=== PATIENT | female | born 1980 | race Caucasian/White ===

== ENCOUNTER 2017-07-08 23:02 | Emergency (ER) | payer SELFPAY ==
[~2017-07-08] VITALS: Ht 162.6 cm; Wt 75.0 kg
[2017-07-08 23:06] VITALS: Ht 162.6 cm; Wt 75.0 kg
[2017-07-09] MEDS ORDERED: ONDANSETRON 4 MG INJ IV STA (02:05)
[2017-07-09] MEDS ORDERED: SOD CHLORIDE 0.9% 1,000 ML IV STA (02:05)
[2017-07-09] MEDS ORDERED: FAMOTIDINE 20 MG TAB PO STA (02:05)
[2017-07-09 03:05] LABS: ADD UMIC YES; UR ASCORBIC ACID NEGATIVE (NEGATIVE); UR BACTERIA FEW /HPF (NONE SEEN); UR BILIRUBIN (Dip) NEGATIVE (NEGATIVE); UR BLOOD (Dip) 2+ mg/dL (NEGATIVE); UR CLARITY CLEAR (CLEAR); UR COLOR YELLOW (YELLOW); UR GLUCOSE (Dip) NEGATIVE (NEGATIVE); UR KETONES (Dip) NEGATIVE (NEGATIVE); UR LEUKOCYTE ESTERASE (Dip) 3+ Leu/ul (NEGATIVE); UR NITRITE (Dip) NEGATIVE (NEGATIVE); UR RBC 2 /HPF (0-5); UR SPECIFIC GRAVITY (Dip) 1.012 (1.003-1.030); UR TOTAL PROTEIN (Dip) NEGATIVE (NEGATIVE); UR UROBILINOGEN (Dip) NEGATIVE (NEGATIVE)
--- NOTE | 2017-07-09 03:23 | RADRPT ---
PROCEDURE: CT ABDOMEN/PELVIS WITHOUT CONTRAST CLINICAL INDICATION: 37-year-old female with abdominal pain. TECHNIQUE: The study was performed utilizing a GE [employer] VCT 64-slice CT scanner. Direct axia l sections were obtained through the abdomen and pelvis without the use of intravenous contrast mate rial. Sagittal and coronal reformations were obtained. One or more of the following dose reduction t echniques were utilized: automated exposure control, adjustment of the mA and/or kV according to pat ient's size or use of iterative reconstruction technique. The images were reviewed on a PACS workst [employer]. CTD/vol = 13.2 mGy; Total Exam DLP = 752.6 mGy-cm. COMPARISON: None. FINDINGS: There is minimal bibasilar subsegmental atelectasis. There is no evidence for significant pleural e ffusion. The liver has a normal size and contour. There is a lobulated cystic focus within the inf erior aspect of the right lobe of the liver on axial image 3-63 measuring approximately 1.7 x 1.4 x 1.9 cm. No intrahepatic nor extrahepatic biliary ductal dilatation is seen. Surgical clips are pres ent within the gallbladder fossa from prior cholecystectomy. The pancreas is without areas of abnor mal attenuation. The spleen is identified and has a normal size without abnormal density. The adren al glands are unremarkable. The kidneys are without abnormal density. No hydroureteronephrosis nor n ephroureterolithiasis is evident. The urinary bladder contains urine. There is mild retained stool w ithin the ascending and transverse colon without obstruction. The appendix is visualized and is wit hout abnormal thickening or surrounding inflammatory reaction. The uterus is anteflexed. There is trace pelvic free fluid. The aortoiliac vessels are without aneurysmal dilatation. The osseous stru ctures are intact. IMPRESSION: 1. Status post cholecystectomy. 2. Lobulated right hepatic cyst. 3. Mild retained stool without obstruction. 4. No CT evidence for appendicitis. 5. Trace pelvic free fluid. .Luis Eduardo Mendez MD, MD Date Time Electronically viewed and signed by .Luis Eduardo Mendez MD, MD on 07/09/2017 03:23 .M/
[2017-07-09 03:39] LABS: BASOPHILS % 0.3 % (0.0-2.0); EOSINOPHILS # 0.4 10^3/ul (0.0-0.5); EOSINOPHILS % 4.9 % (0.0-7.0); HEMATOCRIT 44.4 % (37.0-47.0); HEMOGLOBIN 14.7 g/dl (12.0-16.0); LYMPHOCYTES # 2.7 10^3/ul (0.8-2.9); LYMPHOCYTES % 31.7 % (15.0-51.0); MEAN CORPUSCULAR HEMOGLOBIN 30.2 pg (29.0-33.0); MEAN CORPUSCULAR HGB CONC 33.1 g/dl (32.0-37.0); MEAN CORPUSCULAR VOLUME 91.4 fl (82.0-101.0); MEAN PLATELET VOLUME 12.4 fl (7.4-10.4); MONOCYTE # 0.7 10^3/ul (0.3-0.9); MONOCYTES % 7.9 % (0.0-11.0); NEUTROPHILS % 54.9 % (39.0-77.0); PLATELET COUNT 221 10^3/UL (140-415); RED BLOOD COUNT 4.86 10^6/ul (4.20-5.40); RED CELL DISTRIBUTION WIDTH 12.7 % (11.5-14.5); WHITE BLOOD COUNT 8.6 10^3/ul (4.8-10.8)
[2017-07-09 03:58] LABS: ALBUMIN 3.9 g/dl (3.3-4.9); ALBUMIN/GLOBULIN RATIO 1.25; BILIRUBIN,INDIRECT 0.4 mg/dl (0-1.1); BILIRUBIN,TOTAL 0.4 mg/dl (0.2-1.3); CALCIUM 9.2 mg/dl (8.4-10.2); CREATININE 0.63 mg/dl (0.44-1.00); POTASSIUM 4.4 mmol/L (3.5-5.1)
--- NOTE | 2017-07-09 03:58 | RADRPT ---
PROCEDURE: ULTRASOUND PELVIS CLINICAL INDICATION: 37-year-old female with pelvic pain. TECHNIQUE: Multiple sonographic images of the pelvis were obtained utilizing a transabdominal and endovaginal technique. The images were reviewed on a PACS workstation. COMPARISON: None. FINDINGS: The uterus is visualized and measures 7.3 x 4.0 x 4.6 cm. The endometrial echo complex is within nor mal limits and measures 6.5 mm. There is no evidence for free fluid. The right ovary was not visuali zed. The left ovary has a normal echotexture and measures 2.9 x 2.0 x 2.5 cm. Left ovarian cyst che suring 2.1 x 1.6 x 1.9 cm. There is flow within the left ovary.. No adnexal masses are noted. IMPRESSION: 1. Left ovarian cyst. 2. The right ovary was not visualized. . .Luis Eduardo Mendez MD, MD Date Time Electronically viewed and signed by .Luis Eduardo Mendez MD, on 07/09/2017 03:58 .M/
[2017-07-09] MEDS ORDERED: TYL500 PO (04:22)
[2017-07-09] MEDS ORDERED: FAMO-96 PO (04:22)
[2017-07-09] MEDS ORDERED: CEPH-443 PO (04:23)
--- NOTE | 2017-07-09 04:33 | ERD ---
ER Documentation Chief Complaint Date/Time DATE: 07/09/17 TIME: 04:28 Chief Complaint epigastric pain x 4 days HPI This is a 37-year-old female presents to the ER with epigastric pain for the last 4 days. Patient states that epigastric pain is burning in quality and severe. Epigastric pain that radiates down into the right lower abdomen and the right pelvic region. Patient denies any urinary frequency or dysuria. She denies any fevers, however admits to chills. She admits to nausea however denies vomiting and diarrhea. Patient states that pain is worse today, she has not taken anything for the pain and rates pain as 10 out of 10. Patient does admit to some chest pain however denies any shortness of breath. Chest pain is nonexertional and worse with movement. ROS 12 point review of systems was done, all negative except per HPI. Medications Home Meds Active Scripts Cephalexin* (Keflex*) 500 Mg Capsule, 500 MG PO BID, #14 CAP Prov:GEETA PIKE C 07/09/17 Famotidine* (Pepcid*) 20 Mg Tablet, 20 MG PO BID for 7 Days, TAB Prov:SHAHZAD,GEETA C 07/09/17 Acetaminophen* (Tylenol*) 500 Mg Tab, 500 MG PO Q4H Y for MILD PAIN LEVEL 1-3 for 3 Days, TAB Prov:SHAHZADLIBANGEETA C 07/09/17 Allergies Allergies: Coded Allergies: No Known Allergy (Unverified , 07/08/17) PMhx/Soc Medical and Surgical Hx: pt denies Medical Hx, pt denies Surgical Hx History of Surgery: No Anesthesia Reaction: No Hx Neurological Disorder: No Hx Respiratory Disorders: No Hx Cardiac Disorders: No Hx Psychiatric Problems: No Hx Miscellaneous Medical Probl: No Hx Alcohol Use: No Hx Substance Use: No Hx Tobacco Use: No Smoking Status: Never smoker Physical Exam Vitals Vital Signs Date Time Temp Pulse Resp B/P Pulse Ox O2 Delivery O2 Flow Rate FiO2 07/09/17 04:36 66 20 122/69 100 07/08/17 23:06 98.3 73 20 119/69 100 Physical Exam GENERAL: The patient is well developed and appropriate for usual state of health , in no apparent distress. HEENT: Atraumatic. CHEST: Clear to auscultation bilaterally. There are no rales, wheezes or rhonchi. HEART: Regular rate and rhythm. No murmurs, clicks, rubs or gallops. ABDOMEN: Soft, nontender and nondistended. Good bowel sounds. No rebound or guarding. No gross peritonitis. No gross organomegaly or masses. No Pena sign or McBurney point tenderness. BACK: No midline or flank tenderness. NEURO: Alert and oriented. Result Diagram: 07/09/17 0250 07/09/17 0250 Results 24 hrs Laboratory Tests Test 07/09/17 02:40 07/09/17 02:50 Urine Color YELLOW Urine Clarity CLEAR Urine pH 7.0 Urine Specific [place] 1.012 Urine Ketones NEGATIVEmg/dL Urine Nitrite NEGATIVEmg/dL Urine Bilirubin NEGATIVEmg/dL Urine Urobilinogen NEGATIVEmg/dL Urine Leukocyte Esterase 3+Josselyn/ul Urine Microscopic RBC 2/HPF Urine Microscopic WBC 2/HPF Urine Bacteria FEW/HPF Urine Hemoglobin 2+mg/dL Urine Glucose NEGATIVEmg/dL Urine Total Protein NEGATIVEmg/dl White Blood Count 8.610^3/ul Red Blood Count 4.8610^6/ul Hemoglobin 14.7g/dl Hematocrit 44.4% Mean Corpuscular Volume 91.4fl Mean Corpuscular Hemoglobin 30.2pg Mean Corpuscular Hemoglobin Concent 33.1g/dl Red Cell Distribution Width 12.7% Platelet Count 23768^3/UL Mean Platelet Volume 12.4fl Neutrophils % 54.9% Lymphocytes % 31.7% Monocytes % 7.9% Eosinophils % 4.9% Basophils % 0.3% Nucleated Red Blood Cells % 0.0/100WBC Neutrophils # (Manual) 4.710^3/ul Lymphocytes # 2.710^3/ul Monocytes # 0.710^3/ul Eosinophils # 0.410^3/ul Basophils # 0.010^3/ul Nucleated Red Blood Cells # 0.010^3/ul Sodium Level 140mmol/L Potassium Level 4.4mmol/L Chloride Level 100mmol/L Carbon Dioxide Level 27mmol/L Anion Gap 17 Blood Urea Nitrogen 16mg/dl Creatinine 0.63mg/dl Glucose Level 83mg/dl Calcium Level 9.2mg/dl Total Bilirubin 0.4mg/dl Direct Bilirubin 0.00mg/dl Indirect Bilirubin 0.4mg/dl Aspartate Amino Transf (AST/SGOT) 24IU/L Alanine Aminotransferase (ALT/SGPT) 29IU/L Alkaline Phosphatase 71IU/L Total Protein 7.0g/dl Albumin 3.9g/dl Globulin 3.10g/dl Albumin/Globulin Ratio 1.25 Lipase 143U/L Current Medications Medications (Trade) Dose Ordered Sig/Vesta Route PRN Reason Start Time Stop Time Status Last Admin Dose Admin Sodium Chloride (NS) 1,000 ml @ 1,000 mls/hr Q1H STAT IV 07/09/17 02:05 07/09/17 03:04 DC 07/09/17 02:51 Ondansetron HCl (Zofran Inj) 4 mg ONCE STAT IV 07/09/17 02:05 07/09/17 02:08 DC 07/09/17 02:51 Famotidine (Pepcid) 20 mg ONCE STAT PO 07/09/17 02:05 07/09/17 02:08 DC 07/09/17 02:51 Procedures/MDM EKG: read by dr. ortiz 67bpm no ST elevation or t wave inversion. Differential Diagnosis: GERD, gastritis, peptic ulcer disease, pancreatitis, cholecystitis, choledocholithiasis, biliary colic, cholangitis, Ciyb-Qdxy-Khduax , ACS/CO, Pnuemonia. Patient was found to have a liver cyst, ovarian cyst and UTI. Liver cysts may be causing patient's pain however the exact etiology of pain is unknown. Suspicion for gallbladder disease is low as patient artery had a cholecystectomy. Patient is afebrile and extremely well-appearing. She will be sent home with Tylenol, famotidine, Keflex patient is to follow-up with her primary care doctor within 1 to days return to ER sooner if symptoms worsen. My medical decision making shared with the patient she understands and agrees with plan. Departure Diagnosis: Primary Impression: UTI (urinary tract infection) Additional Impression: Epigastric pain Condition: Stable Patient Instructions: Understanding Urinary Tract Infections (UTIs), Epigastric Pain (Uncertain Cause) Additional Instructions: Llame al doctor MAANA y charlene leeanna HAYDEE PARA DENTRO DE 1-2 BRIZUELA.Dgale a la secretaria que nosotros le instruimos hacer esta haydee.Avise o llame si salas condicin se empeora antes de la haydee. Regresa aqui si peor o no mejor. GEETA PIKE Jul 09, 2017 04:33
[2017-07-09 04:36] VITALS: BP 122/69; PULSE 66; RESP 20
== END 2017-07-09 04:38 | disposition home or self-care (01) ==
LOC: FTE 23:02
DX: N39.0 Urinary tract infection, site not specified (principal)
CPT/HCPCS: 36415; 74176; 76830; 76856; 80053; 81001; 83690; 85025; 93005; 96374; 99285; J2405; J7030